=== PATIENT | male | born 1970 | race Asian ===

== ENCOUNTER 2018-10-09 05:22 | Inpatient (IN) | payer MEDICAID ==
[2018-10-09] VITALS (65 sets, daily range): BP systolic 77–160; BP diastolic 24–117
[~2018-10-09] VITALS: Ht 180.3 cm; Wt 105.4 kg
[~2018-10-09 05:22] MED LIST: CHLO50TA PO; CYCL10TA7 PO; GABA-531 PO; IBUP-2030 PO; OMEP20TA15 PO; TRAM50TA3 PO
[2018-10-09] MEDS ORDERED: THROMBIN (BOVINE) 5000 UNITS/VIAL TOP ONE (05:58)
[2018-10-09] MEDS ORDERED: LIDOCAINE HCL/EPINEPHRINE 1%-EPI 1:100,000 20 ML VIAL ONE (05:59)
[2018-10-09] MEDS ORDERED: BACITRACIN 50,000 UNITS/VIAL ONE (05:59)
[2018-10-09] MEDS ORDERED: LACTATED RINGERS 1,000 ML IV SCH (06:00)
[2018-10-09 06:50] LABS: PARTIAL THROMBOPLASTIN TIME 27.9 sec (23.4-31.0)
[2018-10-09] MEDS ORDERED: ROCURONIUM BROMIDE 10MG/ML VIAL 5ML IV ONE ×2 (06:51→09:17)
[2018-10-09] MEDS ORDERED: NEOSTIGMINE METHYLSULFATE 1MG/ML 10 ML VIAL ONE (06:51)
[2018-10-09] MEDS ORDERED: FENTANYL CITRATE/PF 50MCG/ML 2ML VIAL ONE (06:51)
[2018-10-09] MEDS ORDERED: PROPOFOL 200MG/20ML VIAL IV ONE ×2 (06:51→09:10)
[2018-10-09] MEDS ORDERED: GLYCOPYRROLATE 0.2 MG/ML 2ML VIAL ONE ×2 (06:52→08:57)
[2018-10-09] MEDS ORDERED: MIDAZOLAM HCL 2 MG/2 ML VIAL ONE (06:52)
[2018-10-09] MEDS ORDERED: CLINDAMYCIN 900 MG PREMIX 50 ML IV ONE (07:02)
[2018-10-09] MEDS ORDERED: MORPHINE SULFATE 2 MG/ML CPJ (NOT FOR IM USE) IV PRN (07:15)
[2018-10-09] MEDS: DEXT 5%/LACTATED RINGERS 1,000 ML IV SCH ×3 (07:15→17:57)
[2018-10-09] MEDS ORDERED: HYDROCODONE/ACETAMINOPHEN 5/325MG TABLET PO PRN (07:15)
[2018-10-09] MEDS ORDERED: ONDANSETRON HCL 4MG/2ML INJ IV PRN ×2 (07:15→08:15)
[2018-10-09] MEDS ORDERED: DEXAMETHASONE 4MG/ML 1ML VIAL ONE (07:20)
[2018-10-09] MEDS ORDERED: LABETALOL 5MG/ML SYR 20 MG/4 ML SYRINGE IV PRN (08:15)
[2018-10-09] MEDS ORDERED: HYDROMORPHONE HCL/PF 2MG/ML CPJ IV PRN (08:15)
[2018-10-09] MEDS ORDERED: MEPERIDINE HCL/PF 25MG/ML CPJ IV PRN (08:15)
[2018-10-09] MEDS ORDERED: NICARDIPINE 100 MG in SODIUM CHLORIDE 0.9% 60 ML IV PRN (10:00)
[2018-10-09] MEDS ORDERED: IPRATROPIUM/ALBUTEROL 0.5-3(2.5)MG/3ML NEB HHN PRN (10:15)
[2018-10-09] MEDS: DEXAMETHASONE 4MG/ML 1ML VIAL IV SCH ×3 (10:42→23:05)
[2018-10-09] MEDS: PROPOFOL 10MG/ML 100ML 100 ML IV PRN ×4 (11:01→23:05)
[2018-10-09 11:26] LABS: BG BASE EXCESS -5.7 mmol/L (-2.0-2.0); BG CARBOXYHEMOGLOBIN 0.5 % (0.5-1.5); BG DEOXYHEMOGLOBIN 1.2 % (0.0-5.0); BG FRACTION INSPIRED OXYGEN 100; BG HCO3 ACT 20.2 mmol/L (22.0-26.0); BG OXYGEN SATURATION 98.8 % (92.0-98.5); BG OXYHEMOGLOBIN 98.3 % (94.0-97.0); BG PCO2 41.1 mmHg (35.0-45.0); BG PO2 210.2 mmHg (75.0-100.0); BG SAMPLE SITE RIGHT RADIAL; BG TIDAL VOLUME(mL) 500 mL; BG TOTAL HEMOGLOBIN 15.5 g/dL (12.0-18.0); BG VENT MODE VENT - A/C; BG VENT RATE 10 set
[2018-10-09] MEDS ORDERED: DEXAMETHASONE 4MG/ML 1ML VIAL IV SCH (12:00)
[2018-10-09] MEDS: IPRATROPIUM/ALBUTEROL 0.5-3(2.5)MG/3ML NEB HHN SCH ×2 (12:30→20:24)
[2018-10-09] MEDS: MORPHINE SULFATE 4 MG/ML CPJ (NOT FOR IM USE) IV PRN ×3 (12:54→20:15)
[2018-10-09 13:05] LABS: CHLORIDE 102 mEq/L (98-107)
[2018-10-09 13:08] LABS: HEMATOCRIT. 42.2 % (42.0-52.0); HEMOGLOBIN. 14.4 g/dL (14.0-18.0); MEAN CORPUSCULAR HEMOGLOBIN 31.1 pg (28.0-32.0); MEAN CORPUSCULAR VOLUME 91.1 fL (80.0-94.0); MEAN PLATELET VOLUME 7.6 fl (7.4-10.4); PLATELET 345 x1000/uL (130-400); RED BLOOD CELL COUNT 4.64 mill/uL (4.7-6.1); RED CELL DISTRIBUTION WIDTH 12.6 % (11.6-14.6)
[2018-10-09] MEDS: FAMOTIDINE 20MG/2ML VIAL IV SCH ×2 (13:11→21:23)
[2018-10-09] MEDS: CLINDAMYCIN 600 MG in DEXTROSE 5% WATER 50 ML IV SCH ×2 (13:11→21:23)
[2018-10-09 14:11] LABS: PLATELET ESTIMATE NORMAL
[2018-10-09] MEDS ORDERED: POTASSIUM CHLORIDE INJ 40 MEQ in DEXT 5% WATER 250 ML IV NR (14:30)
[2018-10-10] VITALS (58 sets, daily range): BP systolic 84–138; BP diastolic 40–93
[2018-10-10] MEDS: MORPHINE SULFATE 4 MG/ML CPJ (NOT FOR IM USE) IV PRN ×5 (02:12→20:31)
[2018-10-10] MEDS: IPRATROPIUM/ALBUTEROL 0.5-3(2.5)MG/3ML NEB HHN SCH ×4 (02:17→20:05)
[2018-10-10] MEDS: DEXT 5%/LACTATED RINGERS 1,000 ML IV SCH ×3 (02:56→21:07)
[2018-10-10] MEDS: PROPOFOL 10MG/ML 100ML 100 ML IV PRN (03:03)
[2018-10-10 05:04] LABS: HEMATOCRIT. 41.8 % (42.0-52.0); HEMOGLOBIN. 14.1 g/dL (14.0-18.0); MEAN CORPUSCULAR HEMOGLOBIN 30.7 pg (28.0-32.0); MEAN CORPUSCULAR VOLUME 91.4 fL (80.0-94.0); MEAN PLATELET VOLUME 7.6 fl (7.4-10.4); PLATELET 343 x1000/uL (130-400); RED BLOOD CELL COUNT 4.58 mill/uL (4.7-6.1); RED CELL DISTRIBUTION WIDTH 12.4 % (11.6-14.6)
[2018-10-10 05:18] LABS: CHLORIDE 105 mEq/L (98-107)
[2018-10-10] MEDS: CLINDAMYCIN 600 MG in DEXTROSE 5% WATER 50 ML IV SCH ×2 (05:26→14:48)
[2018-10-10] MEDS: DEXAMETHASONE 4MG/ML 1ML VIAL IV SCH (05:26)
[2018-10-10] MEDS ORDERED: SODIUM CHLORIDE 0.9% 250 ML IV ONE ×2 (06:15→06:30)
[2018-10-10] MEDS: FAMOTIDINE 20MG/2ML VIAL IV SCH ×2 (09:36→20:30)
[2018-10-10] MEDS ORDERED: ONDANSETRON INJ IV PRN (10:45)
[2018-10-10] MEDS ORDERED: NALOXONE INJ IV PRN (10:45)
[2018-10-10] MEDS: HYDROMORPHONE PCA 10MG/50ML IV PRN (11:31)
[2018-10-10 14:13] LABS: PLATELET ESTIMATE NORMAL
[2018-10-10] MEDS ORDERED: DEXTROSE 50% WATER 50ML SYRINGE IV PRN (18:00)
[2018-10-10] MEDS: CEFTRIAXONE 1 G PREMIX 50 ML IV SCH (20:29)
[2018-10-10] MEDS: BLOOD SUGAR DIAGNOSTIC STRIP TEST SCH (21:00)
[2018-10-10] MEDS: INSULIN LISPRO 100 UNITS/ML SUBCUT SCH (21:06)
[2018-10-11] VITALS (16 sets, daily range): BP systolic 93–136; BP diastolic 64–92
[2018-10-11] MEDS: MORPHINE SULFATE 4 MG/ML CPJ (NOT FOR IM USE) IV PRN ×4 (01:59→20:52)
[2018-10-11] MEDS: IPRATROPIUM/ALBUTEROL 0.5-3(2.5)MG/3ML NEB HHN SCH ×4 (02:00→21:33)
[2018-10-11] MEDS: DEXT 5%/LACTATED RINGERS 1,000 ML IV SCH ×2 (05:15→22:49)
[2018-10-11 05:26] LABS: BASOPHILS % 0.2 % (0.0-2.0); HEMATOCRIT. 39.4 % (42.0-52.0); HEMOGLOBIN. 13.1 g/dL (14.0-18.0); MEAN CORPUSCULAR HEMOGLOBIN 30.7 pg (28.0-32.0); MEAN CORPUSCULAR VOLUME 92.1 fL (80.0-94.0); MONOCYTES % 6.1 % (2.0-8.0); NEUTROPHILS % 84.7 % (40.0-76.0); PLATELET 347 x1000/uL (130-400); RED BLOOD CELL COUNT 4.28 mill/uL (4.7-6.1); RED CELL DISTRIBUTION WIDTH 12.8 % (11.6-14.6)
[2018-10-11 05:29] LABS: CHLORIDE 105 mEq/L (98-107)
[2018-10-11] MEDS: INSULIN LISPRO 100 UNITS/ML SUBCUT SCH ×3 (06:03→18:32)
[2018-10-11] MEDS: BLOOD SUGAR DIAGNOSTIC STRIP TEST SCH ×4 (06:03→18:14)
[2018-10-11 07:50] LABS: CLARITY URINE CLEAR (CLEAR); COLOR URINE YELLOW (YELLOW); KETONES URINE NEGATIVE (NEGATIVE); LEUKOCYTE ESTERASE URINE NEGATIVE (NEGATIVE); NITRITE URINE NEGATIVE (NEGATIVE); OCCULT BLOOD URINE 1+ (NEGATIVE); PH URINE 6.5 (4.5-8.0); PROTEIN URINE NEGATIVE (NEGATIVE); SPECIFIC GRAVITY URINE 1.023 (1.005-1.030); UROBILINOGEN URINE 0.2 E.U./dL (0.2-1.0)
[2018-10-11] MEDS: FAMOTIDINE 20MG/2ML VIAL IV SCH ×2 (08:05→20:28)
[2018-10-11] MEDS ORDERED: POTASSIUM CHLORIDE 20MEQ TABLET SR PO NR (10:15)
[2018-10-11] MEDS: HYDROMORPHONE PCA 10MG/50ML IV PRN (14:44)
[2018-10-11] MEDS ORDERED: DIPHENHYDRAMINE 50MG/ML VIAL IV PRN (16:45)
[2018-10-11] MEDS: CEFTRIAXONE 1 G PREMIX 50 ML IV SCH (20:28)
[2018-10-12] VITALS: BP 129/78
[2018-10-12] MEDS: IPRATROPIUM/ALBUTEROL 0.5-3(2.5)MG/3ML NEB HHN SCH ×3 (02:22→15:30)
[2018-10-12 04:00] VITALS: BP 128/88
[2018-10-12] MEDS: BLOOD SUGAR DIAGNOSTIC STRIP TEST SCH ×2 (07:20→12:20)
[2018-10-12] MEDS: INSULIN LISPRO 100 UNITS/ML SUBCUT SCH ×2 (07:50→12:50)
[2018-10-12 08:00] VITALS: BP 133/87
[2018-10-12 08:35] LABS: BASOPHILS % 0.4 % (0.0-2.0); EOSINOPHILS % 1.7 % (0.0-5.0); HEMATOCRIT. 38.8 % (42.0-52.0); HEMOGLOBIN. 13.3 g/dL (14.0-18.0); LYMPHOCYTES % 19.2 % (20.0-50.0); MEAN CORPUSCULAR HEMOGLOBIN 31.1 pg (28.0-32.0); MEAN CORPUSCULAR VOLUME 91.1 fL (80.0-94.0); MEAN PLATELET VOLUME 7.7 fl (7.4-10.4); MONOCYTES % 9.4 % (2.0-8.0); NEUTROPHILS % 69.3 % (40.0-76.0); PLATELET 356 x1000/uL (130-400); RED BLOOD CELL COUNT 4.26 mill/uL (4.7-6.1); RED CELL DISTRIBUTION WIDTH 12.7 % (11.6-14.6)
[2018-10-12 08:44] LABS: CHLORIDE 102 mEq/L (98-107)
[2018-10-12] MEDS: FAMOTIDINE 20MG/2ML VIAL IV SCH (09:23)
[2018-10-12] MEDS: MORPHINE SULFATE 4 MG/ML CPJ (NOT FOR IM USE) IV PRN (09:25)
[2018-10-12 12:00] VITALS: BP 141/87
[2018-10-12] MEDS ORDERED: POTASSIUM CHLORIDE 20MEQ TABLET SR PO NR (12:00)
[2018-10-12 16:00] VITALS: BP 149/96
[2018-10-12 16:21] VITALS: BP 149/96
== END 2018-10-12 17:27 | disposition home or self-care (01) | DRG 321 ==
LOC: OR 05:22 → MICUSO 05:23 → EDSTATUS 11:00 → 6EST 10-11 11:25
PROVIDERS: ADMIT Internal Medicine; ATTEND Internal Medicine
PROC: 0RG20K0 Fusion of 2 or more Cervical Vertebral Joints with Nonautologous Tissue Substitute, Anterior Approach, Anterior Column, Open Approach (ICD-10-PCS; principal; 2018-10-09)
PROC: 0RB30ZZ Excision of Cervical Vertebral Disc, Open Approach (ICD-10-PCS; 2018-10-09)
PROC: 4A11X4G Monitoring of Peripheral Nervous Electrical Activity, Intraoperative, External Approach (ICD-10-PCS; 2018-10-09)
DX: M48.02 Spinal stenosis, cervical region (principal); G82.50 Quadriplegia, unspecified; M47.12 Other spondylosis with myelopathy, cervical region; Z78.1 Physical restraint status; E87.6 Hypokalemia; D72.829 Elevated white blood cell count, unspecified; F12.90 Cannabis use, unspecified, uncomplicated; M47.22 Other spondylosis with radiculopathy, cervical region; G89.29 Other chronic pain; I10 Essential (primary) hypertension; R73.9 Hyperglycemia, unspecified; Z86.11 Personal history of tuberculosis; Z88.0 Allergy status to penicillin
CPT/HCPCS: 36415; 36600; 71045; 72040; 72141; 76000; 80048; 82375; 82805; 82962; 84478; 86850; 86900; 88304; 88311; 93005; 94640; 97116; 97163; 97166; 97530; 97535; J0696; J1100; J1170; J1200; J1815; J2250; J2270; J2405; J2704; J2710; J3010; J3480; J3490; J7040; J7050; J7060; J7121; J7620; L0172

== ENCOUNTER → 2019-09-03 | Outpatient (CLI) | payer MEDICAID ==
[~2019-09-03] MED LIST changes: +GABA-290 PO; +HYDR-4001 PO; +LISI40TA4 PO; +OMEP40CA12 PO
== END | disposition home or self-care (01) ==
LOC: EDSTATUS 12:05 → LAB 12:06
PROVIDERS: ATTEND Neurological Surgery
DX: Z01.818 Encounter for other preprocedural examination (principal); Z11.59 Encounter for screening for other viral diseases
CPT/HCPCS: U0003-CS

== ENCOUNTER 2019-12-14 12:23 | Emergency (ER) | payer MEDICAID, OTHER ==
[~2019-12-14] VITALS: Ht 185.4 cm; Wt 91.0 kg
[~2019-12-14 12:23] MED LIST changes: -CHLO50TA PO; -GABA-531 PO; -HYDR-4001 PO; -IBUP-2030 PO; -OMEP20TA15 PO; -TRAM50TA3 PO
[2019-12-14] MEDS ORDERED: ACETAMINOPHEN 325MG TABLET PO ONE (13:15)
[2019-12-14 14:30] VITALS: BP 138/76
== END 2019-12-14 17:33 | disposition left against medical advice (07) ==
LOC: ER 12:23
DX: G83.4 Cauda equina syndrome (principal); F17.200 Nicotine dependence, unspecified, uncomplicated; F12.10 Cannabis abuse, uncomplicated; F14.10 Cocaine abuse, uncomplicated; E78.00 Pure hypercholesterolemia, unspecified; I10 Essential (primary) hypertension; K21.9 Gastro-esophageal reflux disease without esophagitis; Z88.0 Allergy status to penicillin; Z98.890 Other specified postprocedural states
CPT/HCPCS: 72148; 99284